=== PATIENT | male | born 1945 ===

== ENCOUNTER 2020-08-04 13:18 | Inpatient (IN) ==
[2020-08-04 14:18] LABS: Basophils % 0.3 % (0.0-0.8); Eosinophils % 0.3 % (0.00-10.9); Hematocrit 39.9 VOL% (42.0-52.0); Hemoglobin 13.4 GM/DL (14.0-18.0); Immature Granulocytes % 0.3 %; Immature Granulocytes Absolute 0.02 #; Lymphocytes # 0.6 10*3/uL (1.4-4.0); Lymphocytes % 9.1 % (21.2-54.2); Mean Corpuscular HGB Conc 33.6 GM/DL (32-36); Mean Corpuscular Volume 94.8 FL (87-102); Mean Platelet Volume 9.7 FL (9.6-12.0); Monocytes % 5.4 % (1.7-12.7); Neutrophils % 84.6 % (38.7-73.9); Platelet Count 212 T/CUMM (130-400); Red Blood Count 4.21 MC/CUMM (3.8-5.5); Red Cell Distribution Width 14.1 % (9.3-17.3); White Blood Count 6.8 T/CUMM (4-12)
[2020-08-04 14:27] LABS: INR 1.1; PT Patient Result 12.1 SECS (9.8-11.9)
[2020-08-04 14:37] LABS: Alanine Aminotransferase 18 U/L (16-61); Albumin 3.3 G/DL (3.4-5.0); Alkaline Phosphatase 75 U/L (45-117); Aspartate Amino Transferase 15 U/L (0-37); Blood Urea Nitrogen 17 MG/DL (7-18); Calcium 8.3 MG/DL (8.5-10.1); Estimated Glom Filtration Rate 91 ML/MIN; Glucose 146 MG/DL (74-106); Osmolality,Calculated 283.4 MOS/KG (273-304); Total Protein 6.4 G/DL (6.4-8.3)
[2020-08-04] MEDS ORDERED: cefTRIAXone 1,000 MG in SODIUM CHLORIDE 0.9% 100 ML IV STA (15:01)
[2020-08-04] MEDS ORDERED: methylPREDNISolone SOD SUC 125 MG/2 ML VIAL IV STA (15:01)
[2020-08-04 16:00] LABS: Ferritin 164.1 ng/ml (26-388)
[2020-08-04] MEDS ORDERED: GLUCAGON 1 MG VIAL IM PRN (16:56)
[2020-08-04] MEDS ORDERED: DEXTROSE 50% 25 GM/50 ML VIAL IV PRN (16:56)
[2020-08-04] MEDS ORDERED: hydrALAZINE 20 MG/1 ML VIAL IV PRN (16:56)
[2020-08-04] MEDS ORDERED: ONDANSETRON 4 MG/2 ML VIAL IV PRN (16:56)
[2020-08-04] MEDS ORDERED: ACETAMINOPHEN 325 MG TABLET PO PRN (16:56)
[2020-08-04 17:41] LABS: Bilirubin,Urine Negative (Negative); Blood, Urine Negative (Negative); Glucose,Urine (UA) Negative (Negative); Ketones,Urine Negative (Negative); Mucus,Urine Occasional /LPF (Occasional); Nitrite,Urine Negative (Negative); Protein,Urine Negative; Urine Appearance Slightly Hazy (Clear); Urine Color Yellow (Yellow); Urine Specific Gravity 1.012 (1.001-1.035); WBC,Urine 3 /HPF (0-6)
[2020-08-04] MEDS: ALBUTEROL 2.5 MG/3 ML NEB RESP TX SCH (19:27)
[2020-08-04] MEDS: ENOXAPARIN 40 MG/0.4 ML SYRINGE SUBCUT SCH (21:06)
[2020-08-04] MEDS: atenoloL 50 MG TABLET PO SCH (21:06)
[2020-08-04] MEDS: guaiFENesin/DM ER 600-30 MG TABLET PO SCH (21:06)
[2020-08-04] MEDS: methylPREDNISolone SOD SUC 40 MG/1 ML VIAL IV SCH (21:07)
[2020-08-05] MEDS: ALBUTEROL 2.5 MG/3 ML NEB RESP TX SCH ×4 (00:47→19:35)
[2020-08-05] MEDS: methylPREDNISolone SOD SUC 40 MG/1 ML VIAL IV SCH ×3 (05:32→21:18)
[2020-08-05 05:44] LABS: Hematocrit 36.4 VOL% (42.0-52.0); Hemoglobin 12.3 GM/DL (14.0-18.0); Immature Granulocytes % 0.3 %; Immature Granulocytes Absolute 0.01 #; Lymphocytes # 0.4 10*3/uL (1.4-4.0); Lymphocytes % 11.5 % (21.2-54.2); Mean Corpuscular HGB Conc 33.8 GM/DL (32-36); Mean Corpuscular Volume 95.3 FL (87-102); Mean Platelet Volume 9.6 FL (9.6-12.0); Neutrophils % 87.2 % (38.7-73.9); Platelet Count 194 T/CUMM (130-400); Red Blood Count 3.82 MC/CUMM (3.8-5.5); Red Cell Distribution Width 13.9 % (9.3-17.3); White Blood Count 3.1 T/CUMM (4-12)
[2020-08-05 06:06] LABS: Ferritin 158.2 ng/ml (26-388)
[2020-08-05 06:10] LABS: Calcium 8.4 MG/DL (8.5-10.1); Osmolality,Calculated 280.4 MOS/KG (273-304); Risk Ratio 2.75; Thyroid Stimulating Hormone 0.53 uIU/ml (0.358-3.74); VLDL CHOLESTEROL 8.4 MG/DL
[2020-08-05] MEDS ORDERED: ALBUTEROL 2.5 MG/3 ML NEB RESP TX PRN (07:00)
[2020-08-05] MEDS: cefTRIAXone 1,000 MG in SYRINGE 1 EACH IV SCH (09:01)
[2020-08-05] MEDS: guaiFENesin/DM ER 600-30 MG TABLET PO SCH ×2 (09:02→21:18)
[2020-08-05] MEDS: FUROSEMIDE 40 MG/4 ML VIAL IV SCH (09:02)
[2020-08-05] MEDS: PANTOPRAZOLE 40 MG TABLET PO SCH (09:03)
[2020-08-05] MEDS: amLODIPine 5 MG TABLET PO SCH (09:58)
[2020-08-05] MEDS: lisinopriL 20 MG TABLET PO SCH (09:58)
[2020-08-05] MEDS: atenoloL 50 MG TABLET PO SCH ×2 (09:59→21:18)
[2020-08-05] MEDS: BUDESONIDE/FORMOTEROL 80-4.5 INHALER 6.9 GM INH SCH ×2 (16:19→21:18)
[2020-08-05] MEDS: ENOXAPARIN 40 MG/0.4 ML SYRINGE SUBCUT SCH (21:17)
[2020-08-06] MEDS: ALBUTEROL 2.5 MG/3 ML NEB RESP TX SCH ×4 (00:32→19:33)
[2020-08-06] MEDS: methylPREDNISolone SOD SUC 40 MG/1 ML VIAL IV SCH ×2 (04:35→16:44)
[2020-08-06 05:30] LABS: Basophils % 0.1 % (0.0-0.8); Hematocrit 34.9 VOL% (42.0-52.0); Hemoglobin 11.6 GM/DL (14.0-18.0); Immature Granulocytes % 0.3 %; Immature Granulocytes Absolute 0.03 #; Lymphocytes # 0.3 10*3/uL (1.4-4.0); Lymphocytes % 2.5 % (21.2-54.2); Mean Corpuscular HGB Conc 33.2 GM/DL (32-36); Mean Corpuscular Volume 95.4 FL (87-102); Mean Platelet Volume 9.9 FL (9.6-12.0); Monocytes % 3.6 % (1.7-12.7); Neutrophils % 93.5 % (38.7-73.9); Platelet Count 186 T/CUMM (130-400); Red Blood Count 3.66 MC/CUMM (3.8-5.5); White Blood Count 10.2 T/CUMM (4-12)
[2020-08-06 06:01] LABS: Hypochromasia 1+; Lymphocytes 1 % (20-55); Ovalocytes Slight; Platelet Estimate Adequate; Segmented Neutrophils 97 % (50-85); Total Cells Counted 100
[2020-08-06 06:34] LABS: Calcium 8.2 MG/DL (8.5-10.1); Osmolality,Calculated 283.5 MOS/KG (273-304)
[2020-08-06] MEDS: cefTRIAXone 1,000 MG in SYRINGE 1 EACH IV SCH (08:41)
[2020-08-06] MEDS: atenoloL 50 MG TABLET PO SCH ×2 (08:42→21:11)
[2020-08-06] MEDS: guaiFENesin/DM ER 600-30 MG TABLET PO SCH ×2 (08:42→21:11)
[2020-08-06] MEDS: FUROSEMIDE 40 MG/4 ML VIAL IV SCH (08:42)
[2020-08-06] MEDS: PANTOPRAZOLE 40 MG TABLET PO SCH (08:42)
[2020-08-06] MEDS: amLODIPine 5 MG TABLET PO SCH (08:42)
[2020-08-06] MEDS: BUDESONIDE/FORMOTEROL 80-4.5 INHALER 6.9 GM INH SCH ×2 (08:43→21:12)
[2020-08-06] MEDS: lisinopriL 20 MG TABLET PO SCH (08:43)
[2020-08-06] MEDS ORDERED: LACTULOSE 20 GM/30 ML UDCUP PO ONE (14:45)
[2020-08-06] MEDS ORDERED: POLYETHYLENE GLYCOL POWDER 17 GM PACK PO SCH (16:30)
[2020-08-06] MEDS: ENOXAPARIN 40 MG/0.4 ML SYRINGE SUBCUT SCH (21:11)
[2020-08-07] MEDS: ALBUTEROL 2.5 MG/3 ML NEB RESP TX SCH ×4 (01:37→19:52)
[2020-08-07] MEDS: methylPREDNISolone SOD SUC 40 MG/1 ML VIAL IV SCH ×2 (03:31→09:17)
[2020-08-07 05:21] LABS: Hematocrit 35.1 VOL% (42.0-52.0); Hemoglobin 11.7 GM/DL (14.0-18.0); Immature Granulocytes % 0.5 %; Immature Granulocytes Absolute 0.05 #; Lymphocytes # 0.5 10*3/uL (1.4-4.0); Lymphocytes % 4.6 % (21.2-54.2); Mean Corpuscular HGB Conc 33.3 GM/DL (32-36); Mean Platelet Volume 9.8 FL (9.6-12.0); Monocytes % 5.5 % (1.7-12.7); Neutrophils % 89.4 % (38.7-73.9); Platelet Count 178 T/CUMM (130-400); Red Blood Count 3.62 MC/CUMM (3.8-5.5); Red Cell Distribution Width 14.1 % (9.3-17.3); White Blood Count 9.9 T/CUMM (4-12)
[2020-08-07 05:40] LABS: Calcium 8.1 MG/DL (8.5-10.1); Osmolality,Calculated 285.3 MOS/KG (273-304)
[2020-08-07 05:44] LABS: Ferritin 247.8 ng/ml (26-388)
[2020-08-07 05:50] LABS: Hypochromasia Slight; Lymphocytes 7 % (20-55); Microcytosis Slight; Ovalocytes Slight; Platelet Estimate Adequate; Segmented Neutrophils 92 % (50-85); Total Cells Counted 100
[2020-08-07] MEDS: guaiFENesin/DM ER 600-30 MG TABLET PO SCH ×2 (09:19→21:36)
[2020-08-07] MEDS: FUROSEMIDE 20 MG TABLET PO SCH (09:19)
[2020-08-07] MEDS: amLODIPine 5 MG TABLET PO SCH (09:19)
[2020-08-07] MEDS: lisinopriL 20 MG TABLET PO SCH (09:19)
[2020-08-07] MEDS: PANTOPRAZOLE 40 MG TABLET PO SCH (09:19)
[2020-08-07] MEDS: atenoloL 50 MG TABLET PO SCH ×2 (09:19→21:36)
[2020-08-07] MEDS: cefTRIAXone 1,000 MG in SYRINGE 1 EACH IV SCH (09:20)
[2020-08-07] MEDS: BUDESONIDE/FORMOTEROL 80-4.5 INHALER 6.9 GM INH SCH ×2 (09:21→21:36)
[2020-08-07] MEDS: POLYETHYLENE GLYCOL POWDER 17 GM PACK PO SCH (09:28)
[2020-08-07] MEDS: ENOXAPARIN 40 MG/0.4 ML SYRINGE SUBCUT SCH (21:36)
[2020-08-08] MEDS: ALBUTEROL 2.5 MG/3 ML NEB RESP TX SCH ×3 (01:39→12:56)
[2020-08-08] MEDS: lisinopriL 20 MG TABLET PO SCH (10:00)
[2020-08-08] MEDS: amLODIPine 5 MG TABLET PO SCH (10:01)
[2020-08-08] MEDS: guaiFENesin/DM ER 600-30 MG TABLET PO SCH (10:01)
[2020-08-08] MEDS: atenoloL 50 MG TABLET PO SCH (10:01)
[2020-08-08] MEDS: POLYETHYLENE GLYCOL POWDER 17 GM PACK PO SCH ×2 (10:01→10:13)
[2020-08-08] MEDS: FUROSEMIDE 20 MG TABLET PO SCH (10:01)
[2020-08-08] MEDS: PANTOPRAZOLE 40 MG TABLET PO SCH (10:01)
[2020-08-08] MEDS: cefTRIAXone 1,000 MG in SYRINGE 1 EACH IV SCH (10:01)
[2020-08-08] MEDS: BUDESONIDE/FORMOTEROL 80-4.5 INHALER 6.9 GM INH SCH (10:02)
[2020-08-08] MEDS: methylPREDNISolone SOD SUC 40 MG/1 ML VIAL IV SCH (10:02)
[2020-08-08 12:54] VITALS: BP 108/58
[2020-08-08] MEDS ORDERED: CEFDINIR 300 MG CAPSULE PO SCH (21:00)
== END 2020-08-08 13:25 | disposition home health service (06) | DRG 190 ==
LOC: EDUNIT# → EDBD → N.EDINP 13:18 → N.ED 13:18 → SUATTDRO 15:39 → N.EDINP 17:50 → N.5E 18:25
PROVIDERS: ADMIT Internal Medicine; ATTEND Internal Medicine